=== PATIENT | female | born 1960 | race Caucasian/White ===

== ENCOUNTER 2023-04-25 12:13 | Outpatient (AMB) | payer OTHER, SELFPAY ==
--- NOTE | 2023-04-25 13:05 | MHC.OFFWIV ---
Intake Vital Signs 04/25/23 13:09 Height 5 ft 3 in BP 134/80 Blood Pressure Location Rt brachial Position Sitting Pulse 75 Pulse Source Pulse Oximeter Temp 97.7 F Temp Source Temporal Artery Scan Pulse Oximetry (%) 98 Oxygen Delivery Method Room Air Intake Visit Reasons: [employer] stye in left eye (lobby) Intake Note: Pt is here c/o having a stye in her left eye for the past four days. Patient Tobacco Use Status: Never used Tobacco Allergies Sulfa (Sulfonamide Antibiotics) Adverse Reaction (Intermediate, Verified 04/25/23 13:08) Rash Do you need a note to return to daycare/school/sports/work: No HPI HPI Comments History of Present Illness Details 62-year-old female presents with a hordeolum to the left lower eyelid. She has had this for 2 weeks, has been applying warm compresses, and taking [id number] measures for pain management. She states that it is not getting any better. She does not report any changes in vision, and denies contact use, and risk of foreign body. [facility] Social History Patient Tobacco Use Status: Never used Tobacco Review of Systems Const Details: Constitutional: No Fever, No Chills ENT/Mouth: No Ear Pain, No Hoarseness, No sore throat Eyes: Positive left Eye lid Pain, No Swelling, No Redness, No Foreign Body Cardiovascular: No Chest Pain, No SOB Respiratory: No Cough, No Dyspnea Gastrointestinal: No Nausea, No Vomiting, No Diarrhea, No abdominal Pain Genitourinary: No Dysuria, No Hematuria Musculoskeletal: No joint pain, No Myalgias, No Joint Swelling Skin: No Skin lacerations, No rash Neuro: No Weakness, No Dizziness, No Headache All systems reviewed & are unremarkable except as noted in HPI and below Physical Exam Vital Signs: Last Vital Signs Temp 97.7 F 04/25/23 13:09 Pulse 75 04/25/23 13:09 BP 134/80 04/25/23 13:09 Pulse Ox 98 04/25/23 13:09 Oxygen Delivery Method Room Air 04/25/23 13:09 Appearance: Alert. Oriented X3. No acute distress. Eyes: Pupils equal, round and reactive to light. Sclera nonicteric. Hordeolum to the left lower lid. Neck: Normal inspection. Neck supple. CVS: Normal heart rate and rhythm. Pulses normal. Respiratory: No respiratory distress. Skin: Skin warm and dry. Normal skin color. Normal skin turgor. Extremities: No lower extremity edema. Gait well balanced well coordinated. Neuro: No motor deficit. No sensory deficit. Cranial nerves 2-12 intact. Assessment & Plan Assessment & Plan (1) Hordeolum externum of lower eyelid: Code(s): H00.019 - Hordeolum externum unspecified eye, unspecified eyelid Plan 62-year-old female presents with 2 weeks of a hordeolum to the left lower lid. She has been using supportive measures, Tylenol, Motrin, and warm compresses with poor effect. Patient does not report any changes in vision, has no risk for foreign body to the eye. Conjunctiva is clear, sclera nonicteric. No indication of globe rupture. Will treat with erythromycin eye ointment q.4 while awake for the next 5 days. Patient was advised to continue using the warm compresses, and Tylenol Motrin. Patient verbalized understanding of discharge instructions. Verbalized understandings of signs and symptoms indicating need for emergent intervention. Medications: New erythromycin Apply to left eye every 4 hours while awake for the next 5 days. 1 appl ophthalmic (eye) Q4H 5 days 3.5 grams 0RF Patient Instructions: You were evaluated for a hordeolum, or a stye on her left lower lid. Use erythromycin eye ointment, every 4 hours while awake for the next 5 days. Continue to use warm compresses as tolerated. Alternate Tylenol 650 mg every 6 hours and Motrin 600 mg every 6 hours as needed for pain management. Consider taking these medications 3 hours apart so you have pain and fever management every 3 hours. Write down what time you take these medications to prevent accidental overdose. Motrin is the same medication as Advil and ibuprofen. Tylenol is the same medication as acetaminophen. Thank you for choosing this urgent care for evaluation. Please follow-up with primary care physician as needed. Return to the emergency department for any new, concerning, or worsening symptoms. Coding Level of Care Code Est Pt Level 3 (32237) Diagnoses Hordeolum externum of lower eyelid H00.019
[2023-04-25 13:09] VITALS: BP 134/80; PULSE 75; TEMP 36.5; O2SAT 98
== END 2023-04-25 15:44 | disposition home or self-care (01) ==
PROVIDERS: PCP Nurse Practitioner Family; Visit Provider Nurse Practitioner Family
DX: H00.019 Hordeolum externum unspecified eye, unspecified eyelid (principal)
CPT/HCPCS: 99213